=== PATIENT | female | born 1965 | race Caucasian/White ===

== ENCOUNTER → 2019-04-04 | Outpatient (CLI) | payer OTHER ==
--- NOTE | 2019-04-04 11:28 | RAD ---
AP and Lateral Views of the Chest 04/04/2019 12:00 AM Indication: COPD. History of vulvar cancer. Hip pain. Comparison: None available Findings: Left subclavian port with tip at the cavoatrial junction. Heart size is top normal. No focal infiltrate, pneumothorax, or effusion is seen. No acute osseous abnormalities are identified. Impression: No evidence of acute cardiopulmonary process. AP pelvis, 2 views left hip 04/04/2019 12:00 AM Indication: Pain. History of vulvar cancer. Comparison: None Findings: There is no acute fracture or dislocation. Articular surfaces are uninterrupted and smooth. No acute soft tissue changes are seen. Surgical clips projecting over the right inguinal region noted. Impression: No evidence of acute osseous abnormality. Electronically signed by: Edward Patel MD (04/04/2019 11:25 AM) [id number]
== END | disposition home or self-care (01) ==
LOC: RAD 09:57 → MERGE 09:57
DX: M25.552 Pain in left hip (principal); M79.605 Pain in left leg; J44.9 Chronic obstructive pulmonary disease, unspecified; Z85.44 Personal history of malignant neoplasm of other female genital organs
CPT/HCPCS: 71046; 73502

== ENCOUNTER → 2019-04-06 | Outpatient (CLI) | payer OTHER ==
[~2019-04-06] MED LIST: ALBUTEROL SULFATE 2.5 MG/3 ML NEBU. NEB ONE
== END | disposition home or self-care (01) ==
LOC: PF 07:48 → MERGE 07:48
PROVIDERS: ATTEND Family Medicine
DX: J44.9 Chronic obstructive pulmonary disease, unspecified (principal); Z87.891 Personal history of nicotine dependence
CPT/HCPCS: 94060; 94640; 94729; J7613

== ENCOUNTER → 2019-06-23 | Outpatient (CLI) | payer OTHER ==
--- NOTE | 2019-06-23 15:18 | RAD ---
DUPLEX LOWER EXTREMITY BILAT Indication: Claudication. Leg pain. Comparison: None. Procedure: Real-time grayscale, color flow Doppler, and Doppler spectral waveform analysis of the arterial system of the lower extremity is performed. Findings: Normal triphasic waveforms are present in the common femoral artery, superficial femoral artery, popliteal artery, anterior tibial artery, posterior tibial artery and dorsalis pedis artery. Mildly elevated velocity within the right common femoral artery measures 186 cm/s. Mildly elevated velocity within the right superficial femoral artery proximally measures 158 cm/s. No significant plaque identified bilaterally. IMPRESSION: 1. 30-49% stenosis of the right common femoral and proximal superficial femoral arteries according to velocity elevation. Electronically signed by: Jake Stoner DO (06/23/2019 3:16 PM) [id number]
== END | disposition home or self-care (01) ==
LOC: US 14:34
PROVIDERS: ATTEND Family Medicine
DX: I70.201 Unspecified atherosclerosis of native arteries of extremities, right leg (principal)
CPT/HCPCS: 93925

== ENCOUNTER → 2021-07-15 | Outpatient (CLI) | payer OTHER ==
--- NOTE | 2021-07-16 14:43 | SLEEP ---
DATE OF STUDY: 07/15/2021 POLYSOMNOGRAM REPORT OBJECTIVE: The patient is a 55-year-old female with insomnia, restless legs, fatigue, excessive somnolence, awakening short of breath. There is a polysomnogram report from 11/29/2013 showing no significant sleep disordered breathing. Height 5 feet 0 inches. Weight 260 pounds. [place] sleep score 15. INTERPRETATION: Sleep architecture is characterized by sleep efficiency of 87% across the 8 hours of recording time. Stage volumes are appropriate for age. Sleep onset latency is 27 minutes. Respiratory monitoring shows a total of 288 events for an apnea-hypopnea index of 41.4 events per hour of sleep. There is a position defect in that 46.5 events per hour and occurred supine versus 3.7 hours on the side. The vast majority of events were mixed in nature. There were some obstructive apneas. The patient refused any intervention during the night, so was not started on CPAP or BiPAP. The minimum oxygen saturation is 55%. No periodic limb movements of sleep are observed. Cardiac monitoring shows some tachycardia. IMPRESSION: Abnormal polysomnogram showing severe obstructive and mixed apnea and hypopnea. The patient refused CPAP and BiPAP titration. RECOMMENDATIONS: The patient could go though a desensitization to help with her fear of CPAP and then return for a titration study. Alternatively, she could be established on variable CPAP machine, but it would be best given the severity of the apnea for her to return for an in-lab study. She should also pursue weight loss, avoid sedatives and alcohol. Thank you for letting us help with the patient's care. CHAN DR: Latrell TID: [id number] CC: Max Colunga MD [facility]
== END ==
LOC: SLPLAB 19:11
PROVIDERS: ATTEND Internal Medicine Critical Care Medicine
DX: G47.33 Obstructive sleep apnea (adult) (pediatric) (principal); J96.11 Chronic respiratory failure with hypoxia
CPT/HCPCS: 95810